=== PATIENT | female | born 1985 | race Caucasian/White ===

== ENCOUNTER 2019-09-23 15:31 | Emergency (ER) | payer OTHER ==
[~2019-09-23] VITALS: Ht 142.2 cm; Wt 63.6 kg
[~2019-09-23 15:31] MED LIST: FLOMAX 0.40.4 MG/CAP PO; GLUCOPHAGE500 MG/TAB PO; LORTAB 5/500 501 TAB PO; NO HOME MEDICATIONS; ZOFRAN 4MG T4 MG/TAB PO
[2019-09-23 15:38] VITALS: TEMP 98.3
[2019-09-23 16:06] LABS: COLLECTION METHOD CLEAN CATCH
[2019-09-23 16:15] LABS: MUCOUS Present /lpf; PH 6 (5-8); URINE APPEARANCE Clear; URINE BACTERIA None Seen /hpf; URINE BILIRUBIN Negative (NEGATIVE); URINE BLOOD Negative (NEGATIVE); URINE COLOR Yellow; URINE GLUCOSE 1+ (NEGATIVE); URINE KETONE Negative (NEGATIVE); URINE LEUKOCYTE ESTERASE Negative (NEGATIVE); URINE NITRATE Negative (NEGATIVE); URINE PROTEIN(semi-quant) Negative (NEGATIVE); URINE RBC 0-2 /hpf; URINE UROBILINOGEN Negative (NEGATIVE)
[2019-09-23 16:28] LABS: BASO % 0.2 % (0.0-2.0); EOS # 0.2 (0.0-0.7); EOS % 2.3 % (0-4.0); GRAN # 5.9 (1.4-6.5); GRAN % 68.8 % (42.2-75.2); HEMOGLOBIN 12.5 g/dl (12.5-16.0); LYMPH # 1.9 (1.2-3.4); LYMPH % 21.9 % (20.0-51.0); MEAN CELL VOLUME 84 fl (80.0-100.0); MEAN CORPUSCULAR HEMOGLOBIN 29 pg (27.0-31.0); MEAN CORPUSCULAR HGB CONC 34 g/dl (33.0-37.0); MEAN PLATELET VOLUME 11.7 fl (7.4-10.4); MONO # 0.6 (0.1-0.6); MONO % 6.7 % (1.7-9.3); PLATELET COUNT 317 K/mm3 (130-400); RED BLOOD COUNT 4.31 M/mm3 (4.10-5.30); REDCELL DISTRIBUTION WIDTH-CV 12.7 % (11.5-14.5)
[2019-09-23 16:34] LABS: HEMATOCRIT 36.3 % (37.0-47.0)
[2019-09-23 17:56] LABS: ALBUMIN 3.9 gm/dL (3.5-5.0); BILIRUBIN,TOTAL 0.2 mg/dL (0.0-1.0); C-REACTIVE PROTEIN 2.7 mg/dL (0.0-0.9); CALCIUM 8.8 mg/dL (8.4-10.2); CREATININE, serum 0.42 (0.52-1.25); POTASSIUM 4.1 mmol/L (3.4-5.0); TOTAL PROTEIN 7.3 gm/dL (6.4-8.2)
[2019-09-23] MEDS ORDERED: ULTRAM 50MG TAB50 MG PO (20:08)
[2019-09-23 20:42] VITALS: BP 142/93; PULSE 64
== END 2019-09-23 20:42 | disposition home or self-care (01) ==
LOC: COL.ER 15:31
PROVIDERS: Emergency Medicine; Nurse Practitioner
DX: R10.31 Right lower quadrant pain (principal); E11.9 Type 2 diabetes mellitus without complications; Z87.442 Personal history of urinary calculi; Z79.84 Long term (current) use of oral hypoglycemic drugs; Z90.721 Acquired absence of ovaries, unilateral
CPT/HCPCS: J1885; J2270; J2405; J7030; Q9967